=== PATIENT | female | born 1940 | race Caucasian/White ===

== ENCOUNTER 2021-12-13 13:45 | Outpatient (CLI) | payer MEDICARE ==
[~2021-12-13 13:45] MED LIST: Iopamidol 370 76% 100 ML VIAL ONE
== END 2021-12-13 13:46 | disposition home or self-care (01) ==
LOC: NAV CT 13:45
PROVIDERS: ATTEND Otolaryngology Plastic Surgery within the Head & Neck
DX: R22.1 Localized swelling, mass and lump, neck (principal)
CPT/HCPCS: 36415; 70491; 82565; Q9967